=== PATIENT | male | born 1985 | race African-American/Black ===

== ENCOUNTER 2024-04-16 12:50 | Emergency (ER) | payer OTHER ==
[~2024-04-16] VITALS: Ht 177.8 cm; Wt 85.0 kg
[2024-04-16 13:11] VITALS: O2SAT 100
[2024-04-16] MEDS ORDERED: CEPH500C2 MT (13:57)
[2024-04-16] MEDS: LIDOCAINE HCL/PF 1% 10 MG/ML 5ML VIAL INFIL ONE (13:57)
[2024-04-16] MEDS ORDERED: SULF1TAB47 MT (13:57)
[2024-04-16] MEDS ORDERED: IBUP-2029 MT (13:57)
[2024-04-16 14:09] VITALS: BP 123/66; PULSE 70; RESP 18; TEMP 36.9; O2SAT 100
== END 2024-04-16 14:11 | disposition home or self-care (01) ==
LOC: ER 12:50
DX: L02.415 Cutaneous abscess of right lower limb (principal)
CPT/HCPCS: 10060; 99284; J2003; Z7610 ×3